=== PATIENT | male | born 1975 | race Caucasian/White ===

== ENCOUNTER → 2016-04-17 | Outpatient (CLI) | payer OTHER ==
[~2016-04-17] MED LIST: CARI350T28 PO; COLD PO; CYCL10TA6 PO; DELSYM COUGH PO; FLUT1INH7 INH; HYDR-5688 PO; IBUP-1428 PO; LISI-461 PO; OXYC5TAB PO; PRLSR20 PO; VENTOLIN HFA INH
--- NOTE | 2016-04-17 12:17 | DIAGNOSTIC IMAGING REPORT ---
CHEST 2 VIEWS ROUTINE HISTORY: J98.6 Paralyzed [id number] COMPARISON: Chest 03/07/2016. FINDINGS: No pneumothorax. The right lung is clear. The heart is normal in size. Mild elevation the left hemidiaphragm and left basilar densities remain unchanged. There may be a trace left pleural effusion. The left upper lung zone remains clear. IMPRESSION: No significant change compared to prior study. Mild elevation of the left hemidiaphragm and left basilar densities with a trace left pleural effusion persist. Electronically signed by: Leonel Rooney M.D. 04/17/2016 12:15 PM Dictated Date/Time: 04/17/2016 12:12 PM
== END | disposition home or self-care (01) ==
LOC: C.RAD1850 10:47
PROVIDERS: ATTEND Surgery
DX: J98.6 Disorders of diaphragm (principal)

== ENCOUNTER → 2016-07-18 | Outpatient (CLI) | payer OTHER ==
--- NOTE | 2016-07-18 15:49 | DIAGNOSTIC IMAGING REPORT ---
CHEST 2 VIEWS ROUTINE HISTORY: J98.6 Paralyzed [id number] COMPARISON: Chest 04/17/2016. FINDINGS: Mild elevation of the left hemidiaphragm, unchanged. A few linear densities at the left lung base are also unchanged. The right lung is clear. No pleural effusions. No pneumothorax. The heart is normal in size. IMPRESSION: No significant change compared to the prior study. Stable mild elevation of the left hemidiaphragm and left basilar densities suggesting atelectasis or scarring. Electronically signed by: Leonel Rooney M.D. 07/18/2016 3:47 PM Dictated Date/Time: 07/18/2016 3:43 PM
== END | disposition home or self-care (01) ==
LOC: C.RAD1850 13:25
PROVIDERS: ATTEND Physician Assistant
DX: J98.6 Disorders of diaphragm (principal)

== ENCOUNTER → 2017-01-29 | Outpatient (CLI) | payer OTHER ==
--- NOTE | 2017-01-29 09:17 | DIAGNOSTIC IMAGING REPORT ---
CHEST 2 VIEWS ROUTINE CLINICAL HISTORY: 41 years-old Male presenting with J98.6 Paralyzed [id number]. TECHNIQUE: PA and lateral views of the chest were obtained. COMPARISON: 07/18/2016. FINDINGS: Persistent mild elevation of the left hemidiaphragm. Cardiomediastinal silhouette normal. Minimal linear opacities at the left lung base unchanged. No new focal infiltrate. No large effusion or pneumothorax. Osseous structures normal. Upper abdomen normal. IMPRESSION: 1. Left basilar scarring/atelectasis unchanged. No new focal infiltrate. Electronically signed by: Quan Casanova M.D. 01/29/2017 9:15 AM Dictated Date/Time: 01/29/2017 9:13 AM
== END | disposition home or self-care (01) ==
LOC: C.RAD1850 09:03
PROVIDERS: ATTEND Surgery
DX: J98.6 Disorders of diaphragm (principal)